=== PATIENT | male | born 1975 ===

== ENCOUNTER 2025-04-12 10:02 | Outpatient (AMB) | payer OTHER, SELFPAY ==
--- OUTSIDE RECORDS SUMMARY | 2020-02-27 10:50 | XMS_ITS | Encounter Summary ---
Author Organization [facility] Address [address] [place] [phone] Phone Care Team Providers Care Stripping Shovel Oiler Name Role Phone Kellie Muhammad INFORMATION SECURITY Primary Care Provider [phone] Encounter Details Date Type Department Care Team (Late st Contact Info) Description 02/27/2020 11:50 AM EDT Hospital Encounter [facility] [address] [place] [address] Pretty Lopez, MONICA [address] [place] [address] [place] [id number] [email or web address] Social History Tobacco Use Types Packs/Day Years Used Date Smoking Tobacco: Never Smokeless Tobacco: Never Alcohol Use Standard Drinks/Week Comments No 0 (1 standard drink = 0.6 oz pur e alcohol) Education Answer Date Recorded Are you interested in more education? Not on john e 09/24/2022 Are you concerned about learning? Not on file 09/24/2022 No 09/24/2022 No 09/24/2022 Digital Access Answer Date Recorded No 10/23/2022 No 10/23/2022 Reliable internet access at home? Not on file 10/23/2022 Device with a working camera? Not on file Sex and Gender Information Value Date Recorded Sex Assigned at Not on file Legal Sex Male 10:27 AM EDT Gender Identity Not on file Sexual Orientation Not on file documented as of this encounter Plan of Treatment Not on file documented as of this encounter Procedures Procedure Name Priority Date/Time Associated Diagnosis Comments XR FINGER 2 OR MORE VIEWS (LEFT) Routine 02/27/2020 11:54 AM EDT Thumb pain, left documented in this encounter Results * XR FINGER 2 OR MORE VIEWS (LEFT) (02/27/2020 11:54 AM EDT) Anatomical Region Laterality Modality Hand Left Radiographic Sadia ging 02/27/2020 12:2 4 PM EDT Impressions 02/27/2020 12:27 PM EDT No acute fracture or destructive bone lesion. Narrative 02/27/2020 12:27 PM EDT EXAM: XR FINGER 2 OR MORE VIEWS (LEFT) COMPARISON: None FINDINGS: No acute fracture or destructive bone lesion. Joint spaces are preserved. Small marginal osteophytes between the sesamoid and head of the 1st metacarpal. Anatomic alignment is maintained. Soft tissue swelling of the 1st digit. No radiopaque foreign body. Procedure Note Majo Meeks MD - 02/27/2020 EXAM: XR FINGER 2 OR MORE VIEWS (LEFT) COMPARISON: None FINDINGS: No acute fracture or destructive bone lesion. Joint spaces are preserved.Small marginal osteophytes between the sesamoid and head of the 1stmetacarpal. Anatomic alignment is maintained. Soft tissue swelling of the1st digit. No radiopaque foreign body. IMPRESSION: No acute fracture or destructive bone lesion. Pretty Lopez INFORMATION SECURITY IMG XR UPPER EXTREMITY Fi nal Result documented in this encounter Visit Diagnoses Not on filedocumented in this encounter Care Teams Stripping Shovel Oiler Relationship Specialty Start Date End Date Kellie Muhammad NP [address] [place] [address] [email or web address] PCP - General 01/31/18 12/19/23 documented as of this encounter Additional Source Comments The information contained in this document represents components of the legal health record. It is not the complete legal health record.[facility]
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
[2025-04-12 10:08] VITALS: BP 128/80; PULSE 76; O2SAT 97; BMI 24.4
--- OUTSIDE RECORDS SUMMARY | 2025-04-12 11:54 | XMS_ITS | Encounter Summary ---
Author Organization [facility] Address [address] [place] [phone] Phone Care Team Providers Care Whiskey Regauger Name Role Phone Kellie Muhammad NP Primary Care Provider [phone] Humberto Rajan MD Primary Care Provider [phone] Encounter Details Date Type Department Care Team (Latest Contact Info) Description 06/01/2018 Transcribe Orders [facility] [address] [facility] [address] [place] [address] Anali Terry PA-C [address], [address] [place] [address] [email or web address] Rectal bleeding (Primary Dx) Social History Tobacco Use Types Packs/Day Years Used Date Smoking Tobacco: Never Smokeless Tobacco: Never Alcohol Use Standard Drinks/Week Comments No 0 (1 standard drink = 0.6 oz pur e alcohol) Sex and Gender Information Value Date Recorded Sex Assigned at Not on file Legal Sex Male 10:27 AM EDT Gender Identity Not on file Sexual Orientation Not on file documented as of this encounter Plan of Treatment Not on file documented as of this encounter Results * Ferritin (06/01/2018 9:43 AM EST) FERRITIN 203 30 - 400 ug/L [facility] Blood 06/01/2018 9:43 AM EST 06/01/2018 9:47 AM EST us Anali Terry PA-C LAB BLOOD BKR ORDERABLES Final Result [address] [address] * (ABNORMAL) C-Reactive Protein (06/01/2018 9:43 AM EST) C REACTIVE PROTEIN 6.4(H) 0.0 - 4.0 mg/L [facility] Blood 06/01/2018 9:43 AM EST 06/01/2018 9:47 AM EST us Anali Terry PA-C LAB BLOOD BKR ORDERABLES Final Result [address] [address] * (ABNORMAL) Comprehensive metabolic panel (06/01/2018 9:43 AM EST) Pathologist [facility] SODIUM 140 133 - 146 mmol/L [facility] POTASSIUM 4.1 3.3 - 5.1 mmol/L [facility] CHLORIDE 102 96 - 108 mmol/L [facility] CO2 26 21 - 35 mmol/L [facility] BUN 17 6 - 19 mg/dL [facility] CREATININE 0.80 0.5 - 1.5 mg/dL [facility] GLUCOSE 116(H) 70 - 99 mg/dL [facility] ALBUMIN 4.2 3.9 - 4.8 g/dL [facility] TOTAL PROTEIN 7.4 6.5 - 8.0 g/dL [facility] CALCIUM 9.6 8.4 - 10.3 mg/dL [facility] ALKALINE PHOSPHATASE 62 39 - 117 U/L [facility] TOTAL BILIRUBIN 0.4 0.0 - 1.2 mg/dL [facility] AST 20 0 - 37 U/L [facility] ALT 26 0 - 40 U/L [facility] GLOBULIN 3.2 1 - 4.8 g/dL [facility] EGFR 111 >59 mL/min/1.7 3m2 [facility] Comment:If patient is black, multiply result by 1.159. Estimated glomerular filtration rate calculated using the CKD-EPI equation. ANION GAP 16 10 - 20 mmol/L [facility] Blood 06/01/2018 9:43 AM EST 06/01/2018 9:47 AM EST us Anali Terry PA-C LAB BLOOD BKR ORDERABLES Final Result Performing Organization Address [facility] Co de Phone Number [address] [address] * CBC (06/01/2018 9:43 AM EST) WBC 5.39 3.40 - 11.20 K/uL [facility] RBC 5.05 4.50 - 5.50 M/uL [facility] HGB 14.6 13.0 - 17.0 g/dL [facility] HCT 43.1 40.0 - 51.0 % [facility] PLT 240 130 - 400 K/uL [facility] MCV 85.3 79.0 - 98.0 fL [facility] MCH 28.9 27.0 - 34.8 pg [facility] MCHC 33.9 31.5 - 36.0 g/dL [facility] RDW 14.3 10.8 - 14.6 % [facility] MPV 10.0 9.4 - 12.4 fl [facility] NRBC 0.00 0.00 /100 WBCs [facility] ABSOLUTE NRBC 0.00 0.00 K/uL [facility] Blood 06/01/2018 9:43 AM EST 06/01/2018 9:47 AM EST us Anali Terry PA-C LAB BLOOD BKR ORDERABLES Final Result Performing Organization Address City/[facility] Co de Phone Number [address] [address] documented in this encounter Visit Diagnoses Diagnosis Rectal bleeding- Primary Hemorrhage of rectum and anus documented in this encounter Care Teams Whiskey Regauger Relationship Specialty Start Date End Date Kellie Muhammad NP [address] [place] [phone] [email or web address] PCP - General 01/31/18 12/19/23 Humberto Rajan MD [address] [place] [phone] [email or web address] PCP - General Internal Medicine 12/20/23 documented as of this encounter Additional Source Comments The information contained in this document represents components of the legal health record. It is not the complete legal health record.[facility]
--- OUTSIDE RECORDS SUMMARY | 2025-04-12 11:54 | XMS_ITS | Encounter Summary ---
Author Organization [facility] Address [address] [place] [phone] Phone Care Team Providers Care Lobby Porter Name Role Phone Kellie Muhammad NP Primary Care Provider [phone] Humberto Rajan MD Primary Care Provider [phone] Encounter Details Date Type Department Care Team (Late st Contact Info) Description 06/14/2018 Procedure Pass [facility] Endoscopy Admitting Dept Virtual Department [address] [place] [phone] Social History Tobacco Use Types Packs/Day Years [...] on file documented as of this encounter Visit Diagnoses Not on filedocumented in this encounter Care Teams Lobby Porter Relationship Specialty Start Date End Date Kellie Muhammad NP [address] [place] [phone] [email or web address] PCP - General 01/31/18 12/19/23 Humberto Rajan MD [address] [place] [phone] [email or web address] PCP - General Internal Medicine 12/20/23 documented as of this encounter Additional Source Comments The information contained in this document represents components of the legal health record. It is not the complete legal health record.[facility]
--- OUTSIDE RECORDS SUMMARY | 2025-04-12 11:54 | XMS_ITS | Clinical Summary ---
Author Organization [facility] Address [address] [address] Phone Care Team Providers Care Parking Lot Supervisor Name Role Phone Humberto Rajan MD Primary Care Provider [phone] Allergies No known active allergies Medications lisinopril (PRINIVIL,ZESTRIL) 5 MG tablet 02/25/20 Active testosterone enanthate (XYOSTED SUBQ)Indications:f or testosterone replacement therapy per pt Inject under the skin. Indications: for testosterone replacement therapy per pt Active ondansetron (ZOFRAN-ODT) 4 MG disintegrating tablet Take 1 tablet (4 mg total) by mouth every 8 (eight) hours as needed for nausea. 6 tablet 11/22/19 Active Active Problems Problem Noted Date Diagnosed Date Obstructive sleep apnea 11/21/2024 Immunizations Immunization Administration Dates Next Due COVID-19 (Pre-03/21) Pfizer Vaccine, mRNA, PF 03/18/2021,06/25/2020,06/25/2020,2020,06/04/2020 Influenza Quadrivalent Prese rvative Free IM 02/19/2022,03/26/2019,02/13/2018,2016,08/13/2015 Influenza Quadrivalent w/ Preservative IM 03/14/2020 MMR 02/19/2022 Tdap 01/13/2015,01/13/2015 Social History Tobacco Use Types Packs/Day Years Used Date Smoking Tobacco: Never Smokeless Tobacco: Never Tobacco Cessation:Counseling Given: Not Answered Alcohol Use Standard Drinks/Week Comments No 0 [...] on file Sexual Orientation Not on file Last Filed Vital Signs Vital Sign Reading Time Taken Comments Blood Pressure 133/83 11/21/2024 8:21 AM EDT Pulse 101 11/21/2024 8:21 AM EDT Temperature 37.3 C (99.1 F) 11/21/2024 8:21 AM EDT Respiratory Rate 16 11/21/2024 8:21 AM EDT Oxygen Saturation 97% 11/21/2024 8:21 AM EDT Inhaled Oxygen Concentration - - Weight 115.7 kg (255 lb) 11/21/2024 8:21 AM EDT Height 175.3 cm (5' 9 ) 11/21/2024 8:21 AM EDT Body Mass Index 37.66 11/21/2024 8:21 AM EDT Plan of Treatment Health Maintenance Due Date Last Done Comments LIPID PANEL 1975 DEPRESSION SCREENING 1989 HEPATITIS C SCREENING 1995 HIV ONE-TIME SCREENING (18-65 YEARS) 1995 CREATININE LEVEL 06/01/2019 06/01/2018 SCREENING FOR DIABETES 06/01/2021 06/01/2018 COLOGUARD 2022 FIT TEST 2022 FOBT 2022 SIGMOIDOSCOPY 2022 VIRTUAL COLONOSCOPY 2022 POTASSIUM LEVEL 06/01/2022 06/01/2021, 06/01/2018 INFLUENZA VACCINE (#1) 2024 , 04/24/2021, 03/17/2021, Additional history exists Adult Td,Tdap Booster 01/13/2025 01/13/2015, 015 COVID-19 VACCINE ( season) 2025 10/05/2022, 04/29/2022, 03/18/2021, Additional history exists COLONOSCOPY 06/14/2028 06/14/2018 COLORECTAL CANCER SCREENING 06/14/2028 SMOKING STATUS SCREENING (Once After 26 Yrs) Completed 11/21/2024 HEPATITIS A VACCINES Aged Out No long er eligible based on patient's age to complete this topic HIB VACCINES Aged Out No longer eligi ble based on patient's age to complete this topic IPV VACCINES Aged Out No longer eligi ble based on patient's age to complete this topic MENINGOCOCCAL VACCINES (ACWY) Aged Out No longer eligible based on patient's age to complete this topic MENINGOCOCCAL VACCINES (B) Aged Out N o longer eligible based on patient's age to complete this topic PNEUMOCOCCAL VACCINES (0-49 years) Aged Out No longer eligible based on patient's age to complete this topic Medical Devices Not on file Procedures Procedure Name Priority Date/Time Associated Diagnosis Comments POTASSIUM Routine 06/01/2021 11:26 AM EST Hyperkalemia ENDOSCOPY, COLON 06/14/2018 11:4 7 AM EST COMPREHENSIVE METABOLIC PANEL (CMP) Routine 06/01/2018 9:43 AM EST Rectal bleeding from Last 3 Months or Most Recently Relevant to Health Maintenance Results * (ABNORMAL) Potassium (06/01/2021 11:26 AM EST) POTASSIUM 5.7(H) 3.3 - 5.1 mmol/L [facility] Comment:Specimen slightly he molyzed, result may be falsely elevated. Blood 06/01/2021 11:2 6 AM EST 06/01/2021 11:27 AM EST us Penny WILLAMS LAB BLOOD BKR ORDERABLES Final Result [facility] [address] [place] [address] * ENDOSCOPY, COLON (06/14/2018 11:47 AM EST) Narrative Transcriptions Panda Arciniega MD - 06/14/2018 11:47 AM EST Patient Name: Miky Dumont Attending MD:: PANDA ARCINIEGA MD, Procedure Date: 06/14/2018 11:47 AM Date of : 1975 Age: 43 Admit Type: Outpatient Gender: Male Room: [place] [address] Referring MD: KELLIE STRONG Exam Type: Colonoscopy Indications: Hematochezia Medications: Monitored Anesthesia Care Procedure: Informed consent was obtained from the patient after discussion of the indications, limitations,alternatives, benefits, and risks of the procedure. Risksspecifically discussed include but are not limited to medication reactions, missed lesions, bleeding, perforation, orthe need for emergent surgery. Throughout the procedure, the patient's blood pressure, pulse, end-tidal CO2, and oxygen saturations were monitored continuously. The Olympus adult variable colonoscope CF-CV276A #4 was introduced through the anus and advanced to the cecum, identified by appendiceal orifice and ileocecal valve.The colonoscopy was performed without difficulty. Thepatient tolerated the procedure well. The quality of the bowel preparation was adequate to identify polyps 6 mm and larger in size. The quality of the bowel preparationwas evaluated using the BBPS ([place] Bowel PreparationScale) with scores of: Right Colon = 2 (minor amount ofresidual staining, small fragments of stool and/or opaqueliquid, but mucosa seen well), Transverse Colon = 2 (minoramount of residual staining, small fragments of stool and/or opaque liquid, but mucosa seen well) and Left Colon = 2 (minor amount of residual staining, small fragments of stool and/or opaque liquid, but mucosa seen well). The total BBPS score equals 6. The quality of the bowel preparation was fair. Complications: No immediate complications. Estimated blood loss:None. Findings: The perianal and digital rectal examinations werenormal. Internal hemorrhoids were found during retroflexion.The hemorrhoids were mild. The exam was otherwise normal throughout the examined colon. Impression: - Preparation of the colon was fair. - Internal hemorrhoids. - No specimens collected. Recommendation: - Discharge patient to home. - Repeat colonoscopy at age 52 for screening purposeswith low roughage x3 days and golytely prep - Return to GI office as previously scheduled; candiscuss banding of hemorrhoids if symptoms persist PANDA ARCINIEGA MD, 06/14/2018 12:15:09 PM This report has been signed electronically. Number of Addenda: 0 Note Initiated On: 06/14/2018 11:47 AM Procedure Code(s): --- Professional --- 43917, Colonoscopy, flexible; diagnostic, including collection of specimen(s) by brushing or washing, when performed (separateprocedure) --- Technical --- 80596, Colonoscopy, flexible; diagnostic, including collection of specimen(s) by brushing or washing, when performed (separateprocedure) Diagnosis Code(s): --- Professional --- K92.1, Melena (includes Hematochezia) K64.8, Other hemorrhoids --- Technical --- K92.1, Melena (includes Hematochezia) K64.8, Other hemorrhoids CPT copyright 2016 [employer]. All rights reserved. The codes documented in this report are preliminary and upon leak inspector reviewmay be revised to meet current compliance requirements. [address] [facility], [place] [address] Kellie Strong NP GI PROCEDURE ORDERABLES Final Result * (ABNORMAL) Comprehensive metabolic panel (06/01/2018 9:43 AM EST) SODIUM 140 133 - 146 mmol/L [facility] POTASSIUM 4.1 3.3 - 5.1 mmol/L [facility] CHLORIDE 102 96 - 108 mmol/L [facility] CO2 26 21 - 35 mmol/L [facility] BUN 17 6 - 19 mg/dL [facility] CREATININE 0.80 0.5 - 1.5 mg/dL [facility] GLUCOSE 116(H) 70 - 99 mg/dL [facility] ALBUMIN 4.2 3.9 - 4.8 g/dL [facility] TOTAL PROTEIN 7.4 6.5 - 8.0 g/dL [facility] CALCIUM 9.6 8.4 - 10.3 mg/dL [facility] ALKALINE PHOSPHATASE 62 39 - 117 U/L [facility] TOTAL BILIRUBIN 0.4 0.0 - 1.2 mg/dL [facility] AST 20 0 - 37 U/L [facility] ALT 26 0 - 40 U/L [facility] GLOBULIN 3.2 1 - 4.8 g/dL [facility] EGFR 111 >59 mL/min/1.7 3m2 [facility] Comment:If patient is black, multiply result by 1.159. Estimated glomerular filtration rate calculated using the CKD-EPI equation. ANION GAP 16 10 - 20 mmol/L [facility] Blood 06/01/2018 9:43 AM EST 06/01/2018 9:47 AM EST Anali Terry PA-C LAB BLOOD BKR ORDERABLES Final Result Performing Organization Address City/State/[facility] Co de Phone Number [address] [address] from Last 3 Months or Most Recently Relevant to Health Maintenance Insurance [facility] Member Subscriber Plan / Payer (Ef fective 2017-Present) Name:Miky Dumont Relation to Subscriber:Self Name:Miky Dumont Payer ID:Not on file Type:O Address: [address] Member Subscriber Plan / Payer (Ef fective 2023-Present) Name:Miky Dumont Relation to Subscriber:Spouse Name:YU DUMONT Date of :1900 (Home) Address: [address] [place] [address] Payer ID:Not on file Type:O Address: [address] [facility] Member Subscriber Plan / Payer (Ef fective 2017-Present) Name:Miky Dumont Relation to Subscriber:Self Name:Miky Dumont Payer ID:Not on file Type:HMO [address] [facility] Address: [address] Member Subscriber Plan / Payer (Ef fective 2023-Present) Name:Miky Dumont Relation to Subscriber:Spouse Name:YU DUMONT Date of :1900 (Home) Address: [address] [place] [address] Payer ID:Not on file Type:O Address: [address] [facility] Member Subscriber Plan / Payer (Ef fective 2017-Present) Name:Miky Dumont Relation to Subscriber:Self Name:Miky Dumont Payer ID:Not on file Type:O Address: [address] [facility] Address: [address] Care Teams Parking Lot Supervisor Relationship Specialty Start Date End Date Humberto Rajan MD [address] [place] [phone] [email or web address] PCP - General Internal Medicine 12/20/23 Additional Source Comments The information contained in this document represents components of the legal health record. It is not the complete legal health record.[facility]
--- OUTSIDE RECORDS SUMMARY | 2025-04-12 11:54 | XMS_ITS | Encounter Summary ---
Author Organization [facility] Address [address] [facility] [address] [place] [phone] Phone Care Team Providers Care Poultry Hatchery Man Name Role Phone Kellie Muhammad NP Primary Care Provider [phone] Humberto Rajan MD Primary Care Provider [phone] Encounter Details Date Type Department Care Team (Late st Contact Info) Description 01/31/2018 Ancillary Orders Virtual Department [address] [place] [address] Kellie Muhammad NP [address] [place] [address] [email or web address] Social History Tobacco Use Types Packs/Day Years Used Date Smoking Tobacco: Never Assessed Sex and Gender Information Value Date Recorded Sex Assigned at Not on file Legal Sex Male 10:27 AM EDT Gender Identity Not on file Sexual Orientation Not on file documented as of this encounter Plan of Treatment Not on file documented as of this encounter Results * TTE COMPREHENSIVE (02/08/2018 11:45 AM EDT) Body Surface Area 2.5 m2 Height 175 m Weight 136 kg Systolic BP 139 mmHg Diastolic BP 99 mmHg Aortic Valve Mean Gradient 6.00 mmHg Aortic Valve Time Velocity Integral 244.00 mm Aortic Valve Peak Velocity 1,660.00 mm/s Aortic Valve Peak Gradient 11.00 mmHg Aortic Sinus Diameter 31 mm Ascending Aorta Diameter 30 mm Inferior Vena Cava Diameter 19 0.0 - 21 mm Interventricular Septum Thickness 11 mm Left Ventricle Internal Diameter End Diastole 44 42 - 58 mm Left Ventricle Internal Diameter End Systole 33 25 - 40 mm Left Ventricular Outflow Tract Diameter 23.00 mm LVOT VTI REST 163.00 mm Left Ventricular Outflow Tract Velocity 1,270.00 mm/s Left Ventricular Outflow Tract Gradient at Rest 6.00 mmHg Left Ventricular Posterior Wall Thickness 13 mm Ejection Fraction 65 50 - 75 Percent Mitral Valve Deceleration Time 222.00 ms Mitral Valve A Wave Speed 907.00 mm/s Mitral Valve E Wave Speed 624.00 mm/s Right Ventricle Basal Diameter 38.30 25 - 41 mm Tricuspid Valve Peak Velocity 3.20 mm/s Raw LV EF% 44 % Aortic Valve Sinus Index 1 12 20 - 32 mm Ascending Aorta Diameter 12 mm Aortic Sinus Index 12 mm Ascending Aorta Index 12 mm Anatomical Region Laterality Modality Heart Ultrasound Narrative 02/08/2018 5:37 PM EDT The study was technically difficult There is mild symmetric left ventricular hypertrophy. Left ventricular systolic function is normal. There are no segmental left ventricular wall motion abnormalities noted. The estimated ejection fraction is 65% (Normal 50-75%). The RVSP is 49 mmHg. Moderately elevated pulmonary pressures No prior studies for comparison. Left Ventricle Left ventricular cavity size is normal and the left ventricular wall thickness is increased. There is mild symmetric left ventricular hypertrophy. Left ventricular systolic function is normal. There are no segmental left ventricular wall motion abnormalities noted. The estimated ejection fraction is 65% (Normal 50-75%). The left ventricular ejection fraction was measured by visual estimate. Left ventricular diastolic function appears within normal limits for age. Right Ventricle The right ventricular size is normal. The right ventricular systolic function is normal. Left Atrium Cavity not well visualized. Right Atrium The right atrium is normal in size. The IVC is normal in size (2.1cm or less). The IVC measures 19 mm (normal <=21 mm). The IVC demonstrates reduced collapse with inspiration which is consistent with elevated RA pressure. Mitral Valve The mitral valve appears normal. There is no evidence of mitral stenosis. There is no significant mitral regurgitation detected by spectral and color Doppler. Tricuspid Valve The tricuspid valve appears normal. TR pk Marcel is 3.2 m/s TR pk PG Is 41 mmHg. Assuming RAP is 8 mmHg. The RVSP is 49 mmHg. Moderately elevated pulmonary pressures. There is evidence of trace to mild tricuspid regurgitation by color and spectral Doppler. Aortic Valve The aortic valve appears normal. The leaflets appear normal in thickness. There is no evidence of valvular aortic stenosis. The peak aortic valve gradient is 11 mmHg. The mean aortic gradient is 6 mmHg. There is no evidence of aortic regurgitation by color and spectral Doppler. Ascending aorta appears within normal limits. Descending thoracic aorta appears within normal limits. Pulmonic Valve The pulmonary valve appears normal. Pericardium There is no evidence of pericardial effusion. Interatrial Septum The interatrial septum appears normal. Interventricular Septum Interventricular septal motion appears normal. General Findings The study was technically difficult (4). Study quality explanation: obesity and body habitus. Color flow Doppler and Spectral Doppler used in the evaluation. Comparison Findings No prior studies for comparison. Kellie Muhammad NP CV ECHO ORDERABLES Final Resul t documented in this encounter Visit Diagnoses Diagnosis Syncope and collapse Syncope and collapse documented in this encounter Care Teams Poultry Hatchery Man Relationship Specialty Start Date End Date Kellie Muhammad NP [address] [place] [address] [email or web address] PCP - General 01/31/18 12/19/23 Humberto Rajan MD [address] [place] [address] [email or web address] PCP - General Internal Medicine 12/20/23 documented as of this encounter Additional Source Comments The information contained in this document represents components of the legal health record. It is not the complete legal health record.[facility]
== END 2025-04-12 10:56 | disposition home or self-care (01) ==
LOC: HO.HSMS 10:02
PROVIDERS: Visit Provider Physician Assistant Medical
DX: G47.19 Other hypersomnia (principal); R06.83 Snoring; G25.2 Other specified forms of tremor
CPT/HCPCS: 99204